=== PATIENT | male | born 1970 | race Caucasian/White ===

== ENCOUNTER → 2021-02-27 | Outpatient (CLI) | payer BC ==
[~2021-02-27] VITALS: Ht 190 cm; Wt 136.0 kg
[~2021-02-27] MED LIST: ACETAMINOPHEN 500 MG TAB (TYLENOL) PO PRN; ACHD5005 PO; BUDE6HFA; CASIRIVIMAB/IMDEVIMAB 1,200 MG in NS (IVPB) 250 ML IV ONE; EPINEPHrine INJECTION 1 MG/ML AMP IM PRN; HYDR1TAB PO; LIDO20SO20 PO; NFPRILOC40 PO; ONDA4TAB11 PO; ONDANSETRON 4 MG/2 ML (SDV) Z0FRAN IV PRN; RANI-10; diphenhydrAMINE 50 MG/ML INJ (BENADRYL) IV PRN
[2021-02-27 12:20] VITALS: BP 123/80
[2021-02-27 13:54] VITALS: BP 123/77
[2021-02-27 14:47] VITALS: BP 120/87
== END ==
LOC: INFUSION 12:40
PROVIDERS: ATTEND Nurse Practitioner Family
DX: Z23 Encounter for immunization (principal); U07.1 COVID-19

== ENCOUNTER → 2021-03-22 | Outpatient (CLI) | payer BC ==
[~2021-03-22] MED LIST changes: -ACETAMINOPHEN 500 MG TAB (TYLENOL) PO PRN; -CASIRIVIMAB/IMDEVIMAB 1,200 MG in NS (IVPB) 250 ML IV ONE; -EPINEPHrine INJECTION 1 MG/ML AMP IM PRN; -ONDANSETRON 4 MG/2 ML (SDV) Z0FRAN IV PRN; -diphenhydrAMINE 50 MG/ML INJ (BENADRYL) IV PRN
--- NOTE | 2021-03-22 10:47 | Diagnostic Imaging Report ---
INDICATION: Chronic left shoulder pain. History of fall 5 views of the left shoulder shows no fracture, dislocation or other acute abnormality. There is mild narrowing of the glenohumeral joint with no spurring. No soft tissue calcifications are seen. IMPRESSION: There are mild degenerative changes present with no acute abnormality seen. Dictated by: Dictated on workstation # [id number]
== END ==
LOC: RAD 09:02
PROVIDERS: ATTEND Nurse Practitioner Family
DX: M19.012 Primary osteoarthritis, left shoulder (principal)
CPT/HCPCS: 73030

== ENCOUNTER → 2021-03-27 | Outpatient (CLI) | payer BC ==
[2021-03-27 07:30] VITALS: BP 139/76
== END ==
LOC: CARD 07:30
PROVIDERS: ATTEND Nurse Practitioner Family
DX: R07.89 Other chest pain (principal); M25.512 Pain in left shoulder
CPT/HCPCS: 93017